=== PATIENT | male | born 1955 | race African-American/Black ===

== ENCOUNTER 2021-08-11 13:49 | Emergency (ER) | payer OTHER ==
[2021-08-11 14:20] VITALS: BP 134/78; PULSE 88; TEMP 97.8; BMI 25.0
[2021-08-11] MEDS ORDERED: ACETAMINOPHEN 500 MG TABLET (FP) PO ONE (15:36)
[2021-08-11] MEDS ORDERED: LIDOCAINE 5% TOPICAL PATCH TP ONE (15:36)
[2021-08-11] MEDS ORDERED: diazePAM 5 MG TABLET PO ONE (15:36)
[2021-08-11] MEDS ORDERED: LIDOCAINE 5% TOPICAL PATCH ONE (15:39)
[2021-08-11] MEDS ORDERED: diazePAM 5 MG TABLET ONE (15:39)
[2021-08-11] MEDS ORDERED: ACETAMINOPHEN 500 MG TABLET (FP) ONE (15:40)
[2021-08-11] MEDS ORDERED: LIDOCAINE PATCH REMOVAL MC SCH (22:00)
== END 2021-08-11 18:38 | disposition home or self-care (01) ==
LOC: JERFT 13:49 → EDSEX 13:49 → MERGE 13:49 → JERFT 18:38
DX: R51.9 Headache, unspecified (principal); M54.2 Cervicalgia; V49.40XA Driver injured in collision with unspecified motor vehicles in traffic accident, initial encounter
CPT/HCPCS: 70450-TC; 71046-TC-FY; 72125-TC; 99284-25

== ENCOUNTER 2022-09-06 19:23 | Emergency (ER) | payer OTHER ==
[2022-09-06 19:39] VITALS: BP 122/80; PULSE 83; RESP 20; TEMP 98.1; BMI 27.8
[2022-09-06] MEDS ORDERED: KETOROLAC TROMETHAMINE 30 MG/1 ML VIAL IVPUSH ONE (20:22)
[2022-09-06] MEDS ORDERED: SODIUM CHLORIDE 0.9% 500 ML INFUS.BAG IV ONE (20:22)
[2022-09-06] MEDS ORDERED: KETOROLAC TROMETHAMINE 30 MG/1 ML VIAL ONE (20:36)
[2022-09-06 20:50] LABS: BASO % 0.7 % (0-2.0); EOS % 1.7 % (0-4.5); HEMATOCRIT 48.2 % (35.4-49); HEMOGLOBIN 15.7 GM/dL (11.7-16.9); MCH 27.4 pg (25.7-33.7); MCHC 32.6 g/dl (32.0-35.9); MEAN CELL VOLUME 84.1 fl (80-96); MEAN PLT VOLUME 8.5 fl (7.5-11.1); MONO % 6.1 % (3.8-10.2); NEUT % 54.5 % (42.8-82.8); PLATELET COUNT 238 10^3/uL (134-434); RBC 5.73 M/mm3 (4.00-5.60); RDW 15.1 % (11.9-15.9); WHITE BLOOD COUNT 5.9 K/mm3 (4.0-10.0)
[2022-09-06 20:55] LABS: URINE APPEARANCE CLEAR; URINE BILIRUBIN NEGATIVE (NEGATIVE); URINE COLOR YELLOW; URINE GLUCOSE (UA) 3+ (NEGATIVE); URINE KETONE NEGATIVE (NEGATIVE); URINE LEUK ESTERASE NEGATIVE (NEGATIVE); URINE NITRITE NEGATIVE (NEGATIVE); URINE PROTEIN NEGATIVE (NEGATIVE)
[2022-09-06 21:23] LABS: POTASSIUM 4.7 mmol/L (3.5-5.1)
[2022-09-06 21:25] LABS: ALBUMIN 4.1 g/dl (3.4-5.0); CALCIUM 9.8 mg/dL (8.5-10.1)
[2022-09-06 21:26] LABS: BLOOD UREA NITROGEN 22.4 mg/dL (7-18)
[2022-09-06 21:29] LABS: CREATININE 1.2 mg/dL (0.55-1.3)
[2022-09-06 21:30] LABS: BILIRUBIN,TOTAL 0.3 mg/dL (0.2-1); TOT PROT 7.2 g/dl (6.4-8.2)
== END 2022-09-06 22:58 | disposition home or self-care (01) ==
LOC: JERFT 19:23 → JER 19:23 → JERFT 22:58
PROC: 3E0333Z Introduction of Anti-inflammatory into Peripheral Vein, Percutaneous Approach (ICD-10-PCS; principal; 2022-09-06)
DX: R10.9 Unspecified abdominal pain (principal)
CPT/HCPCS: 36415; 74176-TC; 80053; 81003; 85025; 87086; 99284-25

== ENCOUNTER 2022-11-10 18:29 | Emergency (ER) | payer OTHER ==
[2022-11-10 18:38] VITALS: BP 147/96; PULSE 96; RESP 20; TEMP 97.8; BMI 27.8
[2022-11-10] MEDS ORDERED: LIDOCAINE HCL 1%, 10 MG/ML (10ML VIAL) MDV ONE (21:13)
[2022-11-10] MEDS ORDERED: SULFAMETHOXAZOLE/TRIMETHOPRIM 800MG/160MG D.S. TABLET PO ONE (22:06)
[2022-11-10] MEDS ORDERED: SULFAMETHOXAZOLE/TRIMETHOPRIM 800MG/160MG D.S. TABLET ONE (22:08)
== END 2022-11-10 22:23 | disposition home or self-care (01) ==
LOC: JERFT 18:29
PROC: 0H96XZZ Drainage of Back Skin, External Approach (ICD-10-PCS; principal; 2022-11-10)
DX: L02.212 Cutaneous abscess of back [any part, except buttock and flank] (principal)
CPT/HCPCS: 10060; 99283-25

== ENCOUNTER 2022-11-12 17:14 | Emergency (ER) | payer OTHER ==
[2022-11-12 17:36] VITALS: BP 153/84; PULSE 105; RESP 15; TEMP 98.3; BMI 27.8
== END 2022-11-12 18:06 | disposition home or self-care (01) ==
LOC: JERFT 17:14
DX: Z48.00 Encounter for change or removal of nonsurgical wound dressing (principal)
CPT/HCPCS: 99281-25

== ENCOUNTER 2023-06-12 18:52 | Emergency (ER) | payer OTHER ==
[2023-06-12 19:08] VITALS: BP 165/89; PULSE 96; RESP 18; TEMP 98.4; BMI 28.5
[2023-06-12] MEDS ORDERED: IBUPROFEN 600 MG TABLET (FP) PO ONE (20:04)
[2023-06-12] MEDS ORDERED: ACETAMINOPHEN 500 MG TABLET (FP) ONE (20:04)
[2023-06-12] MEDS: IBUPROFEN 600 MG TABLET (FP) PO ONE (20:07)
[2023-06-12] MEDS: ACETAMINOPHEN 500 MG TABLET (FP) PO ONE (20:08)
== END 2023-06-12 20:49 | disposition home or self-care (01) ==
LOC: JERFT 18:52
DX: M54.12 Radiculopathy, cervical region (principal); R20.0 Anesthesia of skin
CPT/HCPCS: 72220-TC-FY; 93005; 93010; 99284-25